=== PATIENT | male | born 1990 | race Caucasian/White ===

== ENCOUNTER → 2021-05-10 | Outpatient (CLI) | payer BC ==
--- NOTE | 2021-05-10 07:45 | RAD ---
INDICATION : Reason: EPIGASTRIC PAIN / Spl. Instructions: / History: COMPARISON: None TECHNIQUE: Multiple ultrasound images obtained through the abdomen in grayscale and color. FINDINGS: Liver: Echotexture within normal limits in visualized portions of liver. Gallbladder: No wall thickening or stones. IVC: Partially distended at level of liver. Common Bile Duct: Not dilated. Pancreas: No gross abnormality identified in visualized portions of pancreas. Right Kidney: No hydronephrosis. IMPRESSION: * No biliary ductal dilation or gallstones. Electronically signed by: Vishal Ace MD (05/10/2021 7:42 AM) [facility]
== END ==
LOC: US 07:02
PROVIDERS: ATTEND Internal Medicine Gastroenterology
DX: K76.89 Other specified diseases of liver (principal); R10.13 Epigastric pain
CPT/HCPCS: 76705

== ENCOUNTER → 2021-05-21 | Outpatient (CLI) | payer BC ==
[~2021-05-21] MED LIST: GADOTERATE 5 MMOL/10ML VIAL. INT ART ONE; IOHEXOL 300 MG/ML 50 ML VIAL. INT ART ONE; LIDOCAINE 1% Multi-Dose 20 ML VIAL. ID ONE
--- NOTE | 2021-05-21 16:05 | KCIC ---
[facility] radiograph of the orbits 05/21/2021 CLINICAL HISTORY: Pre-MRI evaluation. History of metal exposure to the eyes. A [facility] digital radiograph of the skull was obtained. No radiopaque foreign body is seen involving e ither orbit. The visualized paranasal sinuses are clear. No fracture is seen. IMPRESSION: No radiopaque foreign body is seen involving either orbit. Electronically signed by: Alirio Hurst MD (05/21/2021 4:03 PM) [id number]
--- NOTE | 2021-05-21 17:24 | KCIC ---
Fluoroscopically guided injection of the left shoulder to facilitate a MR arthrogram 05/21/2021 Clinical history: Left shoulder pain. Technique: After the risks and benefits of the procedure were explained to the patient, written infor med consent was obtained. The anterior skin surface of the left shoulder was prepped and draped in st erile fashion. 1% lidocaine was used as local anesthetic. Under fluoroscopic guidance, a 22-gauge spi nal needle was advanced into the anterior aspect of the left glenohumeral joint. Intra-articular posi tion of the needle was confirmed by injecting 3 cc of Omnipaque 300. Following 15 cc of a solution co ntaining 5 cc of 0.1% lidocaine, 15 cc of normal saline and 0.1 cc of CLARISCAN were injected into th e left glenohumeral joint. Following this the needle was removed and hemostasis achieved at the punct ure site. A sterile bandage was placed on the skin puncture site. The patient tolerated the procedure well and there were no immediate complications. The patient was taken to MRI for further imaging wagner luation. The total fluoroscopic time for this study was 24 seconds. 1 digital fluoroscopic captured A P radiograph of the left shoulder was obtained. Impression: Technically successful injection of the left shoulder joint under fluoroscopy to facilita te a MR arthrogram as outlined above. Electronically signed by: Alirio Hurst MD (05/21/2021 5:21 PM) [id number]
--- NOTE | 2021-05-21 18:09 | KCIC ---
MR arthrogram left shoulder dated 05/21/2021. No comparison available. CLINICAL INDICATION: Left shoulder pain. Impingement. Lifting injury. TECHNIQUE: Routine MR arthrogram of left shoulder performed following the intra-articular injection of dilute ga dolinium. Injection portion the study was performed by different radiologist and procedural details w ill be reported separately. FINDINGS: Adequate distention of the joint space with contrast material. No apparent labral tear or focal carti bryant defect. There is mild blunting of the posterior superior labrum without discrete tear. No perila bral cyst. Long head biceps tendon and biceps anchor are intact. Mild hypertrophic change of the AC joint. No significant undersurface spurring. No significant subacr omial/subdeltoid bursal fluid collection. Acromium is type II morphology. Minimal increased signal within the supraspinatus and infraspinatus portions of the rotator cuff. No full-thickness tear or significant partial-thickness defect. Subscapularis is intact. IMPRESSION: 1. No apparent labral tear. There is mild blunting of the posterior superior labrum that could be rel ated to early labral degeneration. 2. Mild rotator cuff tendinopathy with no evidence of full-thickness tear. 3. Intact biceps tendon. Electronically signed by: Adan Wing MD (05/21/2021 6:06 PM) [id number]
== END | disposition home or self-care (01) ==
LOC: KCIC 14:06
PROVIDERS: ATTEND Physician Assistant
DX: M25.512 Pain in left shoulder (principal); M75.112 Incomplete rotator cuff tear or rupture of left shoulder, not specified as traumatic; S43.432A Superior glenoid labrum lesion of left shoulder, initial encounter; M75.42 Impingement syndrome of left shoulder; Z79.899 Other long term (current) drug therapy; X58.XXXA Exposure to other specified factors, initial encounter; Y93.89 Activity, other specified; Y92.89 Other specified places as the place of occurrence of the external cause; Y99.8 Other external cause status
CPT/HCPCS: 23350; 70030; 73222; 77002; A9575; J3490; Q9967